=== PATIENT | female | born 1950 | race Caucasian/White ===

== ENCOUNTER → 2021-04-22 | Outpatient (CLI) | payer MEDICARE, BC ==
[~2021-04-22] MED LIST: ATORVASTATIN; GLUCOPHAGE; LEVOTHYROXINE PO; NEXIUM PO; PRIMATENE 12.51 TAB PO
== END ==
LOC: COL.RAD 08:28
DX: K21.9 Gastro-esophageal reflux disease without esophagitis (principal); K44.9 Diaphragmatic hernia without obstruction or gangrene